=== PATIENT | male | born 1985 | race Caucasian/White ===

== ENCOUNTER → 2016-07-07 | Outpatient (CLI) | payer BC ==
[~2016-07-07] MED LIST: IBUPROFEN PO; KEFLEX500 M1 PO
--- NOTE | ~2016-07-07 | CR58 ---
[facility]. [facility] A Service of [facility] & [facility] RADIOLOGY TEXT RESULTS PATIENT: SHAW CARRASCO LOCATION: [facility] : [birth year] UNIT #: [id number] AGE: [address]: Gilda Angel MD SEX: M ORDER DR: [id number] [place] [id number] O MR#: [id number] Acc #: [id number] NAME: SHAW CARRASCO : 1985 SEX: M STUDY DATE/TIME: 07/07/2016 10:24 UNIT: [facility] ROOM: STUDY DESCRIPTION: CR Cervical Spine 2 or 3 Views Attending Physician: Gilda Angel M.D. Referring Physician: Gilda Angel M.D. Ordering Physician: Gilda Angel M.D. Primary Care Physician: Gilda Angel M.D. MEDICAL IMAGING REPORT This report is preliminary unless electronic signature is present. EXAM Cervical spine 3-view series HISTORY Neck pain for 2 weeks. The patient lifts furniture for work. FINDINGS AP and lateral projections of the cervical spine show satisfactory preservation of the cervical lordosis. The cervical soft tissues are normal. All anterior and posterior elements in the cervical area are anatomically normal without identifiable fracture, dislocation, malignant lytic or sclerotic change, or arthritis. There is no congenital defect apparent. IMPRESSION Normal cervical spine. Dictated by... Yunior Bowens M.D. THIS IS AN ELECTRONICALLY VERIFIED REPORT Yunior Bowens M.D. at 07/07/2016 4:55 PM Kimberlee TD: 07/07/2016 14:53 JOB #: [id number] MEDICAL IMAGING REPORT
== END | disposition home or self-care (01) ==
LOC: SRAD 10:15
DX: M54.12 Radiculopathy, cervical region (principal)
CPT/HCPCS: 72040